=== PATIENT | female | born 1990 | race Two or more races ===

== ENCOUNTER → 2018-01-01 16:00 | Outpatient (CLI) | payer OTHER, SELFPAY ==
[2018-01-04 09:46] LABS: HPV Reflexed? NOT INDICATED
== END ==
PROVIDERS: Visit Provider Obstetrics & Gynecology
DX: Z12.4 Encounter for screening for malignant neoplasm of cervix (principal)
CPT/HCPCS: 88175; G0145

== ENCOUNTER → 2021-01-13 | Outpatient (CLI) | payer OTHER, SELFPAY ==
[2021-01-13 10:36] VITALS: BMI 26.0
[2021-01-15 12:29] LABS: HPV Reflexed? NOT INDICATED
== END | disposition home or self-care (01) ==
LOC: LABSPEC 12:28
PROVIDERS: Referring Provider Nurse Practitioner Women's Health; Visit Provider Nurse Practitioner Women's Health
DX: Z12.4 Encounter for screening for malignant neoplasm of cervix (principal)
CPT/HCPCS: 88175; G0145

== ENCOUNTER → 2021-05-27 11:29 | Outpatient (CLI) | payer OTHER, SELFPAY ==
--- NOTE | 2021-05-27 11:32 | US_ITS ---
STUDY: ULTRASOUND OF THE FEMALE PELVIS - COMPLETE REASON FOR EXAM: Female, 30 years old. Pelvic pain and irregular bleeding. LMP: 04/28/2021. TECHNIQUE: Transabdominal and Transvaginal TECHNICAL QUALITY: Adequate. COMPARISON: None. FINDINGS: The uterus is anteverted and is in a midline position. The uterus measures 7.5 cm x 3.7 cm x 2.6 cm. Normal uterine cervix. The endometrium measures 6 mm in thickness, and is heterogeneous (striated). There is no demonstrated endometrial mass. There is no demonstrated myometrial mass. I.U.D. - The patient does not have an I.U.D. The right ovary is visualized. The right ovary measures 2.4 cm x 1.6 cm x 2 cm. There is a 2.3 cm x 2.1 cm x 1.8 cm hypoechoic solid nodule adjacent to the right ovary. This may represent either a pedunculated uterine fibroid or possible ovarian nodule. Correlation with CT is recommended. There is normal arterial and normal venous vascularity. The left ovary is visualized. The left ovary measures 2.9 cm x 2.2 cm x 2 cm. There is no left ovarian cyst or ovarian mass. There is no visualized left adnexal mass or complex lesion. There is normal arterial and normal venous vascularity. There is minimal fluid in the cul-de-sac. The pre void volume of the bladder was 497 ml. US/Transvaginal Non- IMPRESSION: 2.3 cm x 2.1 cm x 1.8 some hypoechoic solid nodule adjacent to the right ovary. This may represent either a primary ovarian nodule versus a pedunculated fibroid. Correlation with a CT scan is recommended. Electronically Signed: Justo Sheikh MD at 14:13 EDT , Service support ,
--- NOTE | 2021-05-27 11:32 | US_ITS ---
STUDY: ULTRASOUND OF THE FEMALE PELVIS - COMPLETE REASON FOR EXAM: Female, 30 years old. Pelvic pain and irregular bleeding. LMP: 04/28/2021. TECHNIQUE: Transabdominal and Transvaginal TECHNICAL QUALITY: Adequate. COMPARISON: None. FINDINGS: The uterus is anteverted and is in a midline position. The uterus measures 7.5 cm x 3.7 cm x 2.6 cm. Normal uterine cervix. The endometrium measures 6 mm in thickness, and is heterogeneous (striated). There is no demonstrated endometrial mass. There is no demonstrated myometrial mass. I.U.D. - The patient does not have an I.U.D. The right ovary is visualized. The right ovary measures 2.4 cm x 1.6 cm x 2 cm. There is a 2.3 cm x 2.1 cm x 1.8 cm hypoechoic solid nodule adjacent to the right ovary. This may represent either a pedunculated uterine fibroid or possible ovarian nodule. Correlation with CT is recommended. There is normal arterial and normal venous vascularity. The left ovary is visualized. The left ovary measures 2.9 cm x 2.2 cm x 2 cm. There is no left ovarian cyst or ovarian mass. There is no visualized left adnexal mass or complex lesion. There is normal arterial and normal venous vascularity. There is minimal fluid in the cul-de-sac. The pre void volume of the bladder was 497 ml. US/Pelvic (Non ) IMPRESSION: 2.3 cm x 2.1 cm x 1.8 some hypoechoic solid nodule adjacent to the right ovary. This may represent either a primary ovarian nodule versus a pedunculated fibroid. Correlation with a CT scan is recommended. Electronically Signed: Justo Sheikh MD at 14:13 EDT , Service support ,
== END ==
PROVIDERS: Referring Provider Obstetrics & Gynecology; Visit Provider Obstetrics & Gynecology
DX: R10.2 Pelvic and perineal pain (principal)
CPT/HCPCS: 76830; 76856; 93976

== ENCOUNTER → 2021-06-29 11:03 | Outpatient (CLI) | payer OTHER, SELFPAY ==
--- NOTE | 2021-06-29 11:05 | MRI_ITS ---
MR Pelvis Female WO/W Contrast 06/29/2021 11:21 AM COMPARISON: Ultrasound 05/27/2021 CLINICAL HISTORY: pelvic pain, bleeding for 2.5 wks 04/2021; minimal pain, no bleeding now TECHNIQUE: Multiplanar T1 and T2 weighted and dynamic post-gadolinium images were obtained through the pelvis. FINDINGS: Bladder: Unremarkable Reproductive organs: 1.8 cm dominant follicle in the right ovary. Lymphadenopathy: Absent Ascites: Absent Bones: No suspicious lesions MRI/Pelvis W/WO Contrast IMPRESSION: Normal female pelvis. Previously described right adnexal mass is not appreciated on this examination. Recommend follow-up pelvic ultrasound in 6-12 weeks to reevaluate the right adnexa. Electronically Signed: Brett Naik MD at 19:58 EDT Tel , Service support ,
== END ==
PROVIDERS: Visit Provider Obstetrics & Gynecology
DX: R10.2 Pelvic and perineal pain (principal)
CPT/HCPCS: 72197; A9575

== ENCOUNTER 2021-10-25 14:28 | Outpatient (CLI) | payer OTHER, SELFPAY ==
[2021-10-25 14:40] LABS: Absolute Lymphocyte Count 2.28 X10^3/uL (0.83-4.51); Absolute Neutrophil Count 9.8 X10^3/uL (2.0-7.7); Basophil# 0.03 X10^3/uL; Basophil% 0.2 % (0-1); Eosinophil# 0.21 X10^3/uL; Eosinophils% 1.6 % (0-5); Hematocrit 37.7 % (37-47); Hemoglobin 12.7 g/dL (12.0-15.0); Lymphocyte # 2.28 X10^3/ul (0.83-4.51); Lymphocyte % 17.2 % (19-41); Mean Corp Hgb Conc 33.7 g/dL (32-36); Mean Corpuscular Hgb 28.4 pg (27.0-32.0); Mean Corpuscular Volume 84.3 fL (81-99); Mean Platelet Vol. 10.6 fl (6.2-12.0); Monocyte# 0.89 X10^3/uL; Monocyte% 6.7 % (0-10); NRBC Flagged by Analyzer 0 % (0-5); Neutrophil # 9.83 X10^3/uL (2.7-7.7); Platelet Count 322 K/mm3 (150-450); RBC Distribution Width CV 13.3 % (11.6-14.6); RBC Distribution Width SD 41.3 fl (35.1-43.9); Red Blood Count 4.47 M/mm3 (4.2-5.4); White Blood Count 13.3 K/mm3 (4.4-11.0)
[2021-10-25 15:36] LABS: Amphetamine Urine VISTA NEGATIVE (<1000 ng/mL); Barbiturate Urine VISTA NEGATIVE (< 200 ng/mL); Benzodiazepine Urine VISTA NEGATIVE (< 200 ng/mL); Cocaine Urine VISTA NEGATIVE (< 300 ng/mL); Ecstacy Urine VISTA NEGATIVE (< 500 ng/mL); Methadone Urine VISTA NEGATIVE (< 300 ng/mL); PCP Urine VISTA NEGATIVE (< 25 ng/mL); THC Urine VISTA NEGATIVE (< 50 ng/mL); Vista UDS pH Range 5
[2021-10-25 15:40] LABS: HIV - WCH Non-Reactive (Nonreactive); Hepatitis B Surface Antigen Non-Reactive (Nonreactive); Hepatitis C Antibody Non-Reactive (Nonreactive); Rubella IgG Reactive (Nonreactive); Syphilis Antibodies Non-reactive
[2021-10-27 22:07] LABS: Chlamydia By Nucleic Acid AMP Negative (Negative)
[2021-10-28 19:11] LABS: Gonococcus By Nucleic Acid AMP Negative (Negative)
== END 2021-10-25 23:59 | disposition home or self-care (01) ==
LOC: PAVLAB 14:29
PROVIDERS: Referring Provider Obstetrics & Gynecology; Visit Provider Obstetrics & Gynecology
DX: Z34.90 Encounter for supervision of normal pregnancy, unspecified, unspecified trimester (principal)
CPT/HCPCS: 36415; 80307; 85025; 86703; 86762; 86780; 86803; 86850; 86900; 86901; 87086; 87088; 87340; 87491; 87591

== ENCOUNTER 2021-12-28 22:18 | Emergency (ER) | payer OTHER, SELFPAY ==
[2021-12-28 22:19] VITALS: BP 125/73; PULSE 89; RESP 18; TEMP 36.3; O2SAT 98; BMI 25.6
--- NOTE | 2021-12-28 22:33 | US_ITS ---
INDICATION: right flank pain EXAMINATION: Ultrasound US Kidney(s) complete (eg, kidneys and bladder) TECHNIQUE: Elkins scale and color doppler images were obtained of the kidneys. COMPARISON: OB ultrasound on same day. MRI pelvis June 29, 2021. FINDINGS: RIGHT KIDNEY: 11.4 x 5.4 x 6.0 cm. Mild hydronephrosis. No shadowing calculus, focal lesion or perinephric collection is demonstrated. LEFT KIDNEY: 10.8 x 5.3 x 4.4 cm. Minimal hydronephrosis. No shadowing calculus, focal lesion or perinephric collection is demonstrated. URINARY BLADDER: Anechoic, mostly decompressed measuring 4.2 x 1.7 x 5.6 cm (21.5 mL) US/Kidney and Bladder IMPRESSION: Mild right and minimal left hydronephrosis. Electronically Signed: Servando Spear MD at 0:03 EDT ,
--- NOTE | 2021-12-28 22:33 | US_ITS ---
STUDY: SECOND AND THIRD TRIMESTER OBSTETRICAL ULTRASOUND - LIMITED REASON FOR EXAM: Female, 31 years old abd pain-rt LMP: August 21, 2021 correlating with 18 weeks 3 days gestation estimated delivery date May 28, 2022 PRIOR ULTRASOUND: May 27, 2021 TECHNIQUE: Transabdominal OB ultrasound grayscale, color flow, M-mode Doppler imaging. Spectral Doppler evaluation of the right ovary performed. FINDINGS: There is a single live intrauterine fetus. The fetus is in a current cephalic presentation. There is demonstrated cardiac activity with a heart rate of 162 bpm. There is subjectively normal amniotic fluid volume. The placenta is anterior without evidence of abruption or previa. There are Grade 0 placental changes. The cervix measures 3.2 cm in length and is closed. Filled stomach. Four-chamber heart. Echogenic cardiac focus noted, image 21. 2 upper and 2 lower extremities. BIOMETRY: Not performed. Right ovary 2.7 x 1.8 x 2.4 cm with normal parenchymal transit present Doppler vascular flow. Left ovary is obscured by bowel gas and surrounding soft tissues. No free fluid in the adnexa or cul-de-sac. US/OB Limited (No Biometrics) IMPRESSION: Single live intrauterine with normal heart rate. Nonspecific echogenic cardiac focus. Recommend follow-up dedicated ultrasound anatomy screening at 18-20 weeks gestation. Anterior placenta without evidence of abruption or previa. Normal right ovary. No evidence of current right ovarian torsion. Obscured left ovary Electronically Signed: Servando Spear MD at 23:58 EDT ,
--- NOTE | 2021-12-28 23:35 | EX.ED.DYSGE1 ---
HPI History of Present Illness Chief Complaint: Abd Pain Narrative Narrative: Patient is a female approximately 18 weeks . 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 She states there is no one motion that led to the pain and that the pain seems to be sharper and not changed with any type of position. She says she feels that the pain is radiating towards the right abdomen as well. She denies any vaginal bleeding or discharge but with the back/flank pain and she was concerned so she presents for evaluation. PFSH [facility] Home Medications prenat.vits,irma,[id number] 1 tab PO DAILY 10/07/21 [History Last Taken Unknown] amoxicillin 500 mg PO TID 7 Days #21 cap 12/29/21 [Rx Last Taken Unknown] Allergy/AdvReac Type Severity Reaction Status Date / Time No Known Allergies Allergy Unverified 12/28/21 22:21 Social History adopted: No household members: spouse number of children: 0 current occupational status: employed current occupation: dance instructer sexually active: Yes Smoking Status: Never smoker alcohol intake: current alcohol intake frequency: a few times a month details: not while substance use type: does not use what type of physical activity do you participate in: other seatbelt use: always do you feel safe at home: Yes 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 ROS ROS ED Constitutional Constitutional ED: Denies chills or fever(s) ENT ENT ED: Denies sore throat Cardiovascular Cardiovascular: Denies chest pain Respiratory/Chest Respiratory/Chest: Denies cough or dyspnea Gastrointestinal Gastrointestinal: Reports abdominal pain; Denies diarrhea, nausea or vomiting Genitourinary Genitourinary ED: Denies dysuria or hematuria Musculoskeletal Musculoskeletal: Reports back pain; Denies myalgias Integumentary Denies rash Neurologic Neurologic: Denies headache(s) or paresthesias Hematologic/Lymphatic Hematologic/Lymphatic: Denies easy bleeding or easy bruising EXAM Physical Exam Const Vital Signs: 12/28/21 22:19 12/29/21 00:40 Temperature 97.3 F L Temperature Source Temporal Pulse Rate 89 73 Respiratory Rate 18 16 Blood Pressure 125/73 H 102/72 Blood Pressure Mean 90 82 Pulse Ox 98 Oxygen Delivery Method Room Air Room Air Positive well nourished and well developed General Appearance ED: well developed Eyes PERRL and EOMs intact bilaterally General Eye ED: Negative for scleral icterus Neck supple Resp normal respiratory effort and clear to auscultation bilaterally Cardio regular rate and regular rhythm GI non-distended GI Narrative: Abdomen is gravid with fundus consistent with reported gestational age. There is mild pain on palpation in the right upper quadrant without voluntary guarding or rigidity. Negative Hilario sign. Negative heel strike psoas and obturator signs Auscultation: normoactive bowel sounds Palpation: soft Back/Spine Back/Spine Narrative: Positive right CVA pain Extremity normal to inspection Neuro oriented x3 and CN's II-XII intact bilaterally Sensorium / Orientation: alert Motor Exam: strength 5/5 throughout Psych mental status grossly normal Skin no rashes or lesions noted Skin Narrative: No overlying soft tissue changes to suggest trauma or infection General Skin Exam: Negative for jaundice MDM MDM MDM Narrative Medical decision making narrative: Patient arrived to the ER afebrile with a blood pressure that was not concerning for preeclampsia. She denied any vaginal bleeding or discharge and therefore I had low concern for labor. With pain mainly in the right flank there is concern she has developed a kidney stone or even possible gallbladder dysfunction as she does have some mild pain with palpation in the right upper quadrant. Basic labs were obtained which do show a leukocytosis approximately 3 points above her previous value however leukocytosis can be normal in . Her kidney function is normal going against acute kidney injury and she has no severe electrolyte derangement and no elevation to her lipase or liver enzymes indicate gallbladder disease. Urine does show +1 bacteria without contamination or blood. Ultrasound of the kidneys as well as the uterus shows mild hydronephrosis on the right without obvious stone. As she does have mainly pain on the right I feel it is most likely related to the mild hydronephrosis and this will be secondary to the uterus distention causing some impingement to the ureter. The ultrasound of the uterus shows normal flow to the right ovary as well as normal heartbeat for the fetus. Therefore at this time as she is afebrile with normal blood pressure I do not feel there is need for placement in the hospital and I do not believe there is need to talk about CT scan or MRI to further evaluate her abdomen as her labs and exam do not point to pancreas gallbladder or appendix disease. The patient will be started on amoxicillin secondary to the bacteria in the urine and because she also has ketones present will be given 1 L fluid. 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 Patient is agreeable to the plan. Lab Data Attestation: I reviewed the patient's lab results. Labs: Laboratory Results - last 24 hr 12/29/21 12/29/21 12/29/21 00:00 00:00 00:05 WBC 16.6 H RBC 3.92 L Hgb 11.0 L Hct 33.1 L MCV 84.4 MCH 28.1 MCHC 33.2 RDW Std Deviation 37.4 RDW Coeff of Sebastian 12.4 Plt Count 270 MPV 10.7 Immature Gran % (Auto) 0.400 Neut % (Auto) 75.8 H Lymph % (Auto) 15.8 L [place] % (Auto) 6.7 Eos % (Auto) 1.1 Baso % (Auto) 0.2 Absolute Neuts (auto) 12.6 H Absolute Lymphs (auto) 2.63 Nucleated RBC % 0 Sodium 139 Potassium 3.3 L Chloride 109 H Carbon Dioxide 21.0 Anion Gap 9 BUN 4 L Creatinine 0.46 L Estim Creat Clear Calc 141.44 Est GFR (MDRD) Af Amer 205 Est GFR (MDRD) Non-Af 169 BUN/Creatinine Ratio 8.7 L Glucose 88 Calcium 8.5 Total Bilirubin 0.20 Direct Bilirubin 0.08 AST 9 L ALT 10 L Alkaline Phosphatase 71 Total Protein 6.5 Albumin 2.7 L Globulin 3.8 Lipase 181 Urine Color Yellow Urine Clarity Clear Urine pH 6.0 Ur Specific [facility] [facility] 1.010 Urine Protein Negative Urine Glucose (UA) Normal Urine Ketones 50 H Urine Occult Blood Negative Urine Nitrite Negative Urine Bilirubin Negative Urine Urobilinogen Normal Ur Leukocyte Esterase Negative Urine RBC 0 SEEN Urine WBC 0 SEEN Ur Squamous Epith Cells 0 SEEN Urine Bacteria 1+ Urine Mucus 0 SEEN Radiography Diagnostic Testing: Clinical Impression(s) from Imaging Studies Obstetrics Ultrasound 12/28/21 22:33 IMPRESSION: Single live intrauterine with normal heart rate. Nonspecific echogenic cardiac focus. Recommend follow-up dedicated ultrasound anatomy screening at 18-20 weeks gestation. Anterior placenta without evidence of abruption or previa. Normal right ovary. No evidence of current right ovarian torsion. Obscured left ovary Electronically Signed: Servando Spear MD at 23:58 EDT , ADDENDUM: 12/29/21 0010 IMPRESSION: Single live intrauterine with normal heart rate. Nonspecific echogenic cardiac focus. Recommend follow-up dedicated ultrasound anatomy screening at 18-20 weeks gestation. Anterior placenta without evidence of abruption or previa. Normal right ovary. No evidence of current right ovarian torsion. Obscured left ovary N.B. : AUBREY Garces, confirmed on 12/29/2021 00:03:50 (ET) that the healthcare facility has received the radiology report. Electronically Signed: Servando Spear MD at 23:58 EDT , Renal Ultrasound 12/28/21 22:33 IMPRESSION: Mild right and minimal left hydronephrosis. Electronically Signed: Servando Spear MD at 0:03 EDT , Discharge Plan Triage Chief Complaint: Abd Pain ED Provider: Jerrod Long Dx/Rx/DC Orders Clinical Impression: Acute right flank pain, , Hydronephrosis Instructions: Adapting to Second ..., Understanding Hydronephrosis Prescriptions: New amoxicillin 500 mg capsule 500 mg PO TID 7 Days Qty: 21 RF: 0 No Action prenat.vits,irma,[id number] Tablet 1 tab PO DAILY RF: 0 Primary Care Provider: Care Physician,No Primary Referrals: Monalisa Langley MD [STAFF PHYSICIAN] - 3-5 Days if not improving Care Physician,No Primary [Primary Care Provider] - Disposition Disposition: Home, Self Care
[2021-12-29 00:05] LABS: Absolute Lymphocyte Count 2.63 X10^3/uL (0.83-4.51); Absolute Neutrophil Count 12.6 X10^3/uL (2.0-7.7); Basophil# 0.04 X10^3/uL; Basophil% 0.2 % (0-1); Eosinophil# 0.18 X10^3/uL; Eosinophils% 1.1 % (0-5); Hematocrit 33.1 % (37-47); Lymphocyte # 2.63 X10^3/ul (0.83-4.51); Lymphocyte % 15.8 % (19-41); Mean Corp Hgb Conc 33.2 g/dL (32-36); Mean Corpuscular Hgb 28.1 pg (27.0-32.0); Mean Corpuscular Volume 84.4 fL (81-99); Mean Platelet Vol. 10.7 fl (6.2-12.0); Monocyte# 1.12 X10^3/uL; Monocyte% 6.7 % (0-10); NRBC Flagged by Analyzer 0 % (0-5); Neutrophil # 12.56 X10^3/uL (2.7-7.7); Neutrophil % 75.8 % (47-70); Platelet Count 270 K/mm3 (150-450); RBC Distribution Width CV 12.4 % (11.6-14.6); RBC Distribution Width SD 37.4 fl (35.1-43.9); Red Blood Count 3.92 M/mm3 (4.2-5.4); White Blood Count 16.6 K/mm3 (4.4-11.0)
[2021-12-29 00:06] LABS: Mucous, Urine 0 SEEN /hpf (<or=2+); Red Blood Cells-Urine 0 SEEN /hpf (0-5); Squamous Epithelial Cells - UA 0 SEEN /hpf (5-10); White Blood Cells 0 SEEN /hpf (0-5)
[2021-12-29 00:07] LABS: Color, Urine Yellow (Yellow); Glucose, Dipstick Normal (Normal); Ketone-Dipstick 50 mg/dl (Negative); Leukocyte Esterase-Dipstick Negative /ul (Negative); Nitrite-Dipstick Negative (Negative); Occult Blood-Urine Negative /ul (Negative); Protein-Dipstick Negative (Negative); Urine Bilirubin Dipstick Negative (Negative); Urine Clarity Clear (Clear); Urine Urobilinogen Normal (Normal)
[2021-12-29 00:20] LABS: Bacteria 1+ /hpf (None Seen)
[2021-12-29 00:22] LABS: AST(SGOT) 9 U/L (15-37); Alanine Aminotransfer ALT/SGPT 10 U/L (13-56); Albumin, Serum 2.7 g/dL (3.2-5.0); Alkaline Phosphatase 71 U/L (45-117); Anion Gap 9 (5-15); BUN 4 mg/dL (7-18); BUN/Creat Ratio 8.7 RATIO (10-20); Bilirubin, Direct 0.08 mg/dL (0.00-0.30); Calcium,Total 8.5 mg/dL (8.5-10.1); Chloride 109 mmol/L (98-107); Creatinine, Serum 0.46 mg/dL (0.55-1.02); EST Glomerular Filtration Rate 169 mL/min (>60); Est Glom Filt Rate - Afr Amer 205 mL/min (>60); Estimated Creatinine Clearance 141.44 ml/min; Globulin 3.8 g/dL (2.2-4.2); Glucose 88 mg/dL (74-106); Lipase 181 U/L (73-393); Potassium 3.3 mmol/L (3.5-5.1); Protein, Total 6.5 g/dL (6.4-8.2); Sodium Level 139 mmol/L (136-145)
[2021-12-29] MEDS: 0.9% Normal Saline 1,000 ML 999 ML IV (00:22)
[2021-12-29] MEDS: AMOXICILLIN 500 MG CAPSULE PO (00:39)
[2021-12-29 00:40] VITALS: BP 102/72; PULSE 73; RESP 16
[2021-12-29 02:26] VITALS: BP 98/55; PULSE 90; RESP 18; O2SAT 97
== END 2021-12-29 02:29 | disposition home or self-care (01) ==
PROVIDERS: Emergency Provider Emergency Medicine; Visit Provider Emergency Medicine
DX: O26.832 Pregnancy related renal disease, second trimester (principal); N13.30 Unspecified hydronephrosis; O26.892 Other specified pregnancy related conditions, second trimester; M54.9 Dorsalgia, unspecified; R10.11 Right upper quadrant pain; Z3A.18 18 weeks gestation of pregnancy
CPT/HCPCS: 76770; 76815; 80048; 80076; 81001; 83690; 85025; 87086; 87088; 96360; 96361; 99284; J7030

== ENCOUNTER → 2022-02-16 | Outpatient (CLI) | payer OTHER, SELFPAY ==
[2022-02-16 15:17] LABS: Absolute Lymphocyte Count 2.16 X10^3/uL (0.83-4.51); Absolute Neutrophil Count 11.4 X10^3/uL (2.0-7.7); Basophil# 0.04 X10^3/uL; Basophil% 0.3 % (0-1); Eosinophil# 0.26 X10^3/uL; Eosinophils% 1.7 % (0-5); Hematocrit 31.1 % (37-47); Hemoglobin 10.2 g/dL (12.0-15.0); Lymphocyte # 2.16 X10^3/ul (0.83-4.51); Mean Corp Hgb Conc 32.8 g/dL (32-36); Mean Corpuscular Hgb 28.3 pg (27.0-32.0); Mean Corpuscular Volume 86.1 fL (81-99); Mean Platelet Vol. 10.8 fl (6.2-12.0); Monocyte# 1.35 X10^3/uL; Monocyte% 8.8 % (0-10); NRBC Flagged by Analyzer 0 % (0-5); Neutrophil # 11.44 X10^3/uL (2.7-7.7); Neutrophil % 74.1 % (47-70); Platelet Count 290 K/mm3 (150-450); RBC Distribution Width CV 12.4 % (11.6-14.6); RBC Distribution Width SD 39.3 fl (35.1-43.9); Red Blood Count 3.61 M/mm3 (4.2-5.4); White Blood Count 15.4 K/mm3 (4.4-11.0)
[2022-02-16 15:24] LABS: Glucose Challenge Gest 1H 50g 83 mg/dL (70-140)
== END | disposition home or self-care (01) ==
LOC: PAVLAB 14:56
PROVIDERS: Referring Provider Obstetrics & Gynecology; Visit Provider Obstetrics & Gynecology
DX: Z34.00 Encounter for supervision of normal first pregnancy, unspecified trimester (principal)
CPT/HCPCS: 36415; 82950; 85025

== ENCOUNTER → 2022-05-04 | Outpatient (CLI) | payer OTHER, SELFPAY | END | disposition home or self-care (01) | LOC: LABSPEC 16:54 | PROVIDERS: Referring Provider Obstetrics & Gynecology; Visit Provider Obstetrics & Gynecology | DX: Z34.00 Encounter for supervision of normal first pregnancy, unspecified trimester (principal) | CPT/HCPCS: 87081 ==

== ENCOUNTER 2022-05-29 22:30 | Inpatient (IN) | payer OTHER, SELFPAY ==
[2022-05-29 20:18] VITALS: BP 120/78; PULSE 89
[2022-05-29 20:20] VITALS: TEMP 36.6
[2022-05-29 20:33] VITALS: BMI 29.2
[2022-05-29] MEDS: LACTATED RINGERS 500 ML 999 ML IV (22:45)
[2022-05-29] MEDS: Lactated Ringers 1,000 ML 200 ML IV (22:45)
[2022-05-29 22:58] LABS: Absolute Neutrophil Count 9.3 X10^3/uL (2.0-7.7); Basophil# 0.03 X10^3/uL; Basophil% 0.2 % (0-1); Eosinophil# 0.15 X10^3/uL; Eosinophils% 1.2 % (0-5); Hematocrit 33.4 % (37-47); Hemoglobin 10.9 g/dL (12.0-15.0); Lymphocyte % 16.9 % (19-41); Mean Corp Hgb Conc 32.6 g/dL (32-36); Mean Corpuscular Hgb 27.6 pg (27.0-32.0); Mean Corpuscular Volume 84.6 fL (81-99); Mean Platelet Vol. 12.8 fl (6.2-12.0); Monocyte# 1.32 X10^3/uL; Monocyte% 10.1 % (0-10); NRBC Flagged by Analyzer 0 % (0-5); Neutrophil # 9.28 X10^3/uL (2.7-7.7); Neutrophil % 71.1 % (47-70); Platelet Count 213 K/mm3 (150-450); RBC Distribution Width CV 13.7 % (11.6-14.6); RBC Distribution Width SD 42.3 fl (35.1-43.9); Red Blood Count 3.95 M/mm3 (4.2-5.4)
[2022-05-29 23:34] VITALS: TEMP 36.8
[2022-05-29 23:35] VITALS: BP 100/56; PULSE 75
[2022-05-30] VITALS (69 sets, daily range): BP systolic 92–133; BP diastolic 43–85; PULSE 68–100; RESP 14–18; TEMP 36.4–38.4; O2SAT 94–100
[2022-05-30] MEDS: LACTATED RINGERS 500 ML 999 ML IV ×2 (00:15→12:19)
[2022-05-30] MEDS: fentaNYL-bupivacaine (epidural) 100 ML BAG EPIDURAL ×4 (01:19→14:48)
--- NOTE | 2022-05-30 01:47 | HP.PCM.OB_ITS ---
HPI - General General Date of Admission: 05/29/22 HPI Narrative ROSALINO JONES, is a 31 F who presents IAL regualr ctx no vb lof good fm ctx increasing in intensity Maternal Data Information DEBBIE Calculator Estimated Delivery Date Method Current WG Current Estimate 05/28/22 LMP (Certain) 40w 2d PFSH PFSH Medical History no medical history Home Medications prenat.vits,irma,[id number] 1 tab PO DAILY 10/07/21 [History Last Taken 05/29/22 07:00 1 tab] breast pump #1 ea 03/16/22 [Rx Last Taken Unknown] Allergy/AdvReac Type Severity Reaction Status Date / Time No Known Allergies Allergy Verified 05/29/22 20:35 Family History no significant family his Surgical History no surgical history Social History adopted: No household members: spouse number of children: 0 current occupational status: employed current occupation: dance instructer sexually active: Yes Smoking Status: Never smoker alcohol intake: current alcohol intake frequency: a few times a month details: not while substance use type: does not use what type of physical activity do you participate in: other seatbelt use: always do you feel safe at home: Yes additional social history: 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 History 1 Elective abortions Hx Para 0 Spontaneous abortions Hx # Term Pregnancies Ectopic pregnancies Hx # Pregnancies Multiple births # of living children Visit Details Expected Delivery Route/Plan Labor Preferences- CB/BF classes: yes labor support person: Saul labor intervention preferences: [] pain management options preferred: open to epidural if needed cut cord/dad catch: no : yes PP control planned: discussed discussed possible routes of delivery and associated risks: [] special requests: [] Plans Covid status: discussed vaccination Flu vaccine: discussed Tdap vaccine: declined Rhogam: na LARC form signed: yes movement and labor precautions reviewed. Problem list reviewed and updated with the most current plan of care details and appropriate orders placed. Relevant counseling for the gestational age provided. Continue routine care and follow up unless otherwise noted in visit notes/problem list details OB Flowsheet Initial Weight: 141 lb Date -?--?-?-?-?-?-?-?-?-?-?-?- EGA Weight BP Urine Prot -?-?-?-?-?-?-?-?-?-?-?-?- Glucose FHR FuHt Pres Dilation -?-?-?-?-?-?-?-?-?-?-?-?- Effaced St Visit Note 10/25/21 -?-?-?-?-?-?-?-?-?-?-?-?- 9w 2d 141 lb (+0 oz) 122/80 -?-?-?-?-?-?-?-?-?-?-?-?- 180 -?-?-?-?-?-?-?-?-?-?-?-?- SM- CRL 2.2cm co ns with LMP 11/22/21 -?-?-?-?-?-?-?-?-?-?-?-?- 13w 2d 140 lb (-16 oz) 110/72 Negative -?-?-?-?-?-?-?-?-?-?-?-?- Negative 145 -?-?-?-?-?-?-?-?-?-?-?-?- SM- no vb crampi ng reviewed labs 12/20/21 -?-?-?-?-?-?-?-?-?-?-?-?- 17w 2d 140 lb (-16 oz) 100/70 -?-?-?-?-?-?-?-?-?-?-?-?- 150 18 -?-?-?-?-?-?-?-?--?-?-?-?- SM- no vb some c ramping 01/19/22 -?-?-?-?-?-?-?-?-?-?-?-?- 21w 4d 142 lb 4 oz (+1 lb 4 oz) 100/70 Negative -?-?--?-?-?-?-?-?-?-?-?-?- Negative 144 -?-?-?-?-?-?-?-?-?-?-?-?- JV- no lof, vagi nal bleeding, or cramping. anatomy ultrasound was normal. 02/16/22 -?-?-?-?-?-?-?-?-?-?-?-?- 25w 4d 146 lb 4 oz (+5 lb 4 oz) 120/76 Negative -?-?-?-?-?-?-?-?-?-?-?-?- Negative 143 -?-?-?-?-?-?-?-?-?-?-?-?- -NO VB, LOF. G ood FM. Larc, 28 wk labs 03/16/22 -?-?-?-?-?-?-?-?-?-?-?-?- 29w 4d 152 lb (+11 lb) 132/80 Negative -?-?-?-?-?-?-?-?-?-?-?-?- Negative 128 29 -?-?-?-?-?-?-?-?-?-?-?-?- JV- pt wants tda p next visit. no complaints. 04/04/22 -?-?-?-?-?-?-?-?-?-?-?-?- 32w 2d 155 lb 6 oz (+14 lb 6 oz) 107/73 Negative -?-?-?-?-?-?-?-?-?-?-?-?- Negative 145 32 Cephalic -?-?-?-?-?-?-?-?-?-?-?-?- Sm- no vb lof go od fm no regular ctx declined tdap 04/21/22 -?-?-?-?-?-?-?-?-?-?-?-?- 34w 5d 157 lb 8 oz (+16 lb 8 oz) 118/72 Negative -?-?-?-?-?-?-?-?-?-?-?-?- Negative 145 35 -?-?-?-?-?-?-?-?-?-?-?-?- JV- no lof, vagi nal bleeding, or dec fm. 05/04/22 -?-?-?-?-?-?-?-?-?-?-?-?- 36w 4d 159 lb 2 oz (+18 lb 2 oz) 122/80 Negative -?-?-?-?-?-?-?-?-?-?-?-?- Negative 160 36 Cephalic -?-?-?-?-?-?-?-?-?-?-?-?- JV- no lof, vagi nal bleeding ,or dec fm. gbs collected. 05/09/22 -?-?-?-?-?-?-?-?-?-?-?-?- 37w 2d 161 lb (+20 lb) 96/70 -?-?-?-?-?-?-?-?-?-?-?-?- 150 37 Cephalic -?-?-?-?-?-?-?-?-?-?-?-?- SM- no vb lof go od fm no regular ctx 05/16/22 -?-?-?-?-?-?-?-?-?-?-?-?- 38w 2d 162 lb 8 oz (+21 lb 8 oz) 129/84 Negative -?-?-?-?-?-?-?-?-?-?-?-?- Negative 150 38 Cephalic 0 .5 -?-?-?-?-?-?-?-?-?-?-?-?- Sm- no vb lof go od fm n oregular ctx 05/25/22 -?-?-?-?-?-?-?-?-?-?-?-?- 39w 4d 162 lb 2 oz (+21 lb 2 oz) 109/71 Negative -?-?-?-?-?-?--?-?-?-?-?-?- Negative 140 39 Cephalic 2 -?-?-?-?-?-?-?-?-?-?-?-?- 70 -2 JV- no lof , vaginal bleeding, or dec fm. no complaints. today. labor precautions discussed. 05/29/22 -?-?-?-?-?-?-?-?-?-?-?-?- 40w 1d 159 lb 9.835 oz (+18 lb 9.835 oz) 120/78 100/56 113/77 116/66 117/68 119/60 97/52 100/58 113/73 101/57 100/55 99/57 -?-?-?-?-?-?-?-?-?-?-?-?- -?-?-?-?-?-?-?-?-?-?-?-?- NST FHR Rate Baby A Baseline: 140 Variability:: Moderate Accelerations:: 15 x 15 Decelerations:: None NST Reactive:: Yes FHR Category:: Category I Uterine Activity:: q3-5 ROS Constitutional Constitutional: Reports systems reviewed and no addt'l complaints, except as documented ENT HEENT: Reports systems reviewed and no addt'l complaints, except as documented Cardiovascular Cardiovascular: Reports systems reviewed and no addt'l complaints, except as documented Respiratory/Chest Respiratory/Chest: Reports systems reviewed and no addt'l complaints, except as documented Gastrointestinal Gastrointestinal: Reports systems reviewed and no addt'l complaints, except as documented and nausea; Denies abdominal pain Genitourinary Genitourinary: Reports systems reviewed and no addt'l complaints, except as documented, contractions Details: present and frequency (regular ) and movement Details: present Musculoskeletal Musculoskeletal: Reports systems reviewed and no addt'l complaints, except as documented Integumentary Integumentary: Reports as per HPI Neurologic Neurologic: Reports systems reviewed and no addt'l complaints, except as documented Endocrine Endocrinology: Reports systems reviewed and no addt'l complaints, except as documented Vital Signs Vital Signs Vital Signs: 05/29/22 20:18 05/29/22 20:18 05/29/22 20:20 Temperature Temperature Source Temporal Pulse Rate 89 Blood Pressure 120/78 BP Systolic 120 BP Diastolic 78 Pulse Ox 05/29/22 20:20 05/29/22 23:35 05/29/22 23:35 Temperature 97.8 F Temperature Source Pulse Rate 75 Blood Pressure 100/56 L BP Systolic 100 BP Diastolic 56 Pulse Ox 05/29/22 23:34 05/29/22 23:34 05/30/22 00:38 Temperature 98.2 F Temperature Source Temporal Pulse Rate 83 Blood Pressure BP Systolic BP Diastolic Pulse Ox 05/30/22 00:38 05/30/22 00:43 05/30/22 00:43 Temperature Temperature Source Pulse Rate 84 Blood Pressure 113/77 BP Systolic 113 BP Diastolic 77 Pulse Ox 98 05/30/22 00:43 05/30/22 00:48 05/30/22 00:48 Temperature Temperature Source Pulse Rate 89 Blood Pressure BP Systolic BP Diastolic Pulse Ox 97 98 05/30/22 00:53 05/30/22 00:53 05/30/22 00:58 Temperature Temperature Source Pulse Rate 92 88 Blood Pressure BP Systolic BP Diastolic Pulse Ox 97 05/30/22 00:58 05/30/22 01:00 05/30/22 01:00 Temperature Temperature Source Pulse Rate 88 Blood Pressure 116/66 BP Systolic 116 BP Diastolic 66 Pulse Ox 96 05/30/22 01:03 05/30/22 01:03 05/30/22 01:08 Temperature Temperature Source Pulse Rate 92 83 Blood Pressure BP Systolic BP Diastolic Pulse Ox 97 05/30/22 01:08 05/30/22 01:10 05/30/22 01:10 Temperature Temperature Source Pulse Rate 83 Blood Pressure 117/68 BP Systolic 117 BP Diastolic 68 Pulse Ox 97 05/30/22 01:10 05/30/22 01:13 05/30/22 01:13 Temperature Temperature Source Pulse Rate 91 Blood Pressure BP Systolic BP Diastolic Pulse Ox 94 96 05/30/22 01:15 05/30/22 01:15 05/30/22 01:18 Temperature Temperature Source Pulse Rate 100 90 Blood Pressure 119/60 BP Systolic 119 BP Diastolic 60 Pulse Ox 05/30/22 01:18 05/30/22 01:20 05/30/22 01:20 Temperature Temperature Source Pulse Rate 83 Blood Pressure 97/52 L BP Systolic 97 BP Diastolic 52 Pulse Ox 97 05/30/22 01:23 05/30/22 01:23 05/30/22 01:25 Temperature Temperature Source Pulse Rate 86 Blood Pressure 100/58 L BP Systolic 100 BP Diastolic 58 Pulse Ox 97 05/30/22 01:25 05/30/22 01:28 05/30/22 01:28 Temperature Temperature Source Pulse Rate 82 84 Blood Pressure BP Systolic BP Diastolic Pulse Ox 97 05/30/22 01:31 05/30/22 01:31 05/30/22 01:33 Temperature Temperature Source Pulse Rate 86 83 Blood Pressure 113/73 BP Systolic 113 BP Diastolic 73 Pulse Ox 05/30/22 01:33 05/30/22 01:35 05/30/22 01:35 Temperature Temperature Source Pulse Rate 79 Blood Pressure 101/57 L BP Systolic 101 BP Diastolic 57 Pulse Ox 97 05/30/22 01:38 05/30/22 01:38 05/30/22 01:40 Temperature Temperature Source Pulse Rate 82 Blood Pressure 100/55 L BP Systolic 100 BP Diastolic 55 Pulse Ox 97 05/30/22 01:40 05/30/22 01:43 05/30/22 01:43 Temperature Temperature Source Pulse Rate 80 78 Blood Pressure BP Systolic BP Diastolic Pulse Ox 97 05/30/22 01:45 05/30/22 01:45 Temperature Temperature Source Pulse Rate 82 Blood Pressure 99/57 L BP Systolic 99 BP Diastolic 57 Pulse Ox Weight Weight: 159 lb 9.835 oz Body Mass Index (BMI) 29.2 Physical Exam Const alert, oriented x3 and healthy appearing Constitutional Narrative: uncomfortable with contractions HEENT normocephalic and moist oral mucous membranes Head and Scalp: atraumatic Neck full ROM, no lymphadenopathy, supple and thyroid normal General: trachea midline Thyroid: thyroid normal Lymph Lymphatic: no lymphadenopathy noted Chest inspection of chest normal Resp normal respiratory effort Cardio regular rate GI normal to inspection, nondistended, normoactive bowel sounds, soft to palpation and non-tender Inspection: gravid external exam normal Bimanual Exam - Vag & Uterus: uterus non-tender Manual OB Exam: estimated gestational size appropriate, presentation cephalic, dilated, effaced and station Extremity normal to inspection General Extremity: Negative for edema Skin no rashes or lesions noted Neuro deep tendon reflexes 2+ bilaterally Motor Exam: strength 5/5 throughout and clonus absent Psych mental status grossly normal Labs Labs Labs: Blood Type O POSITIVE Antibody Screen NEGATIVE Hct 33.4 % (37-47) L Hgb 10.9 g/dL (12.0-15.0) L Pap Smear Negative Obstetrics US Syphilis Total Ab Non-reactive Rubella IgG Antibody Reactive (Nonreactive) Hep Bs Antigen Non-Reactive (Nonreactive) Chlamydia DNA (JOSE) Negative (Negative) Neisseria gonorrhoeae DNA (JOSE) Negative (Negative) HIV 1&2 Antibody Non-Reactive (Nonreactive) Glucose 1 Hr 50 gm 83 mg/dL (70-140) Assessment & Plan (1) Anemia affecting in second trimester: COMMENT: add FE (2) : QUALIFIERS: Weeks of gestation: 39 weeks Qualified Code(s): Z3A.39 - 39 weeks gestation of COMMENT: GBS neg. declined genetic and carrier screen (3) Supervision of normal first : COMMENT: PRR DEBBIE:05/28/22 Spouse: Saul having a Girl! (4) Active labor at term: PLAN: Plan Patient presents IAL, plan expectant management for , pitocin/AROM PRN if needed. Pain management: plans epidural. GBS neg. Management of any complications: none I have reviewed the [facility] and made any clinically relevant updates.
[2022-05-30] MEDS: Lactated Ringers 1,000 ML 200 ML IV ×3 (05:10→18:09)
[2022-05-30] MEDS: Oxytocin 30 units/NS 500 ml 30 UNITS/500 ML IV.SOLN IV (06:42)
[2022-05-30] MEDS: Acetaminophen 500 MG Tablet PO (14:39)
[2022-05-30] MEDS: Lidocaine 1% (30 ml sdv) 30 ML Vial INFILT (19:00)
[2022-05-30] MEDS: Sodium Citrate/Citric Acid 30 ML UDC PO (20:01)
--- NOTE | 2022-05-30 20:09 | EX.PCM.OBRPT ---
Assessment & Plan (1) Active labor at term: (2) Anemia affecting in second trimester: COMMENT: add FE (3) : QUALIFIERS: Weeks of gestation: 39 weeks Qualified Code(s): Z3A.39 - 39 weeks gestation of COMMENT: GBS neg. declined genetic and carrier screen (4) Supervision of normal first : COMMENT: PRR DEBBIE:05/28/22 Spouse: Saul having a Girl! (5) Failed vacuum extraction delivery: (6) delivery delivered: COMMENT: IAL failed vacuum LTCS SM 40 girl Shaye (7) Maternal fever during labor: COMMENT: amp gent(24 hour dose) given during labor, ancef and azithro at time of cs, ancef 24 hrs Maternal Data Information DEBBIE Calculator Estimated Delivery Date Method Current WG Current Estimate 05/28/22 LMP (Certain) 40w 2d Final DEBBIE Source: LMP Gestational age: 39 Details Operative Information Post-Operative Diagnosis: same Procedure Type: low transverse Type of Anesthesia: Epidural Special Medications: none Drain: Bailey to straight drain Fluids Replaced: crystalloid Findings Description of Procedure: Patient presented in active labor with clear rupture of membranes. Patient experienced arrest of dilation and therefore Pitocin augmentation was made. patient developed a fever and therefore ampicillin and gentamicin was given. Patient proceeded to complete dilation and had discomfort that was severe in her lower back radiating to the front. Patient pushed for 2 hours and a pudenal block was placed to try and aid with anesthesia. Vagina was Betadine prepped and ischial spines were located bilaterally and 2 cm medial and posterior to the ischial spines were injected with 10 cc of lidocaine bilaterally without complication. The patient continued to have severe lower back pain radiating upfront. After pushing for 2 hours the head had progressed to a +3 station. Was noted to be ROP with an asynclitic presentation but due to the progress with pushing it was felt reasonable to offer the patient an operative vaginal delivery due to maternal discomfort and the patient have been requesting it due to maternal discomfort. Vacuum was applied and pressure applied into the green zone pressure applied for a duration of 2 contractions and a total of 3 minutes. 2 pulls with 1 pop-off were made and no descent was noted therefore the decision to abort the vacuum delivery and proceed with primary was made due to suspected cephalopelvic disproportion. pillow was placed vaginally to elevate the head out of the pelvis to aid in delivery and reduce trauma to mom and baby. Epidural anesthesia was dosed up by found to be inadequate therefore the decision was made to place the patient under general anesthesia. The patient was placed in the dorsal supine position with leftward tilt. Patient was prepped and draped in the normal sterile fashion. Pfannenstiel skin incision was made with the scalpel and carried through to the underlying layer of fascia with the scalpel. Fascia was nicked in the midline and the incision extended laterally. The rectus bellies were dissected off superiorly and inferiorly with out complication both sharply and bluntly. The peritoneum was entered digitally. The incision was stretched and a low transverse uterine incision was made with the scalpel. The 's head was delivered atraumatically with minimal effort due to the aid of the pillow, followed by the anterior and posterior shoulders without complication the rest of the delivered. The cord was clamped and cut immediately and the was handed off to awaiting nurse. The placenta was delivered spontaneously immediately following and was noted to be intact and have a three-vessel cord. The uterus was exteriorized cleared of all clots and debris, and the incision was closed in a double layer closure using #1 Monocryl. The ovaries and fallopian tubes were noted to be within normal limits. The uterus was returned to the maternal abdomen and gutters were cleared of all clots and debris. Curtis applied to the incision. The peritoneum was closed with 3-0 Monocryl in a running fashion. Gloves were changed prior to fascial closure. Fascia was closed with 0 PDS in a running fashion. Subcutaneous tissue was copiously irrigated and the skin was closed with 3-0 Monocryl in a subcuticular fashion. Mepilex dressing was applied without complication. Patient was taken to recovery in stable condition. It was discussed with the patient that based on the clinical information obtained during this encounter, combined with her history, at this time I would recommend sections for future deliveries if further pregnancies are desired. Amniotic Membrane Rupture Type: Spontaneous Amniotic Fluid Description: Clear Placental Delivery Description: Spontaneous Placenta Disposition: [facility] Cord Vessel Description: 3 Vessels Cord Entanglement: None Delayed Cord Clamping: Yes Complications Risks of Surgery Discussed w/Patient: Bleeding, Infection, Need for Future C-Sections and Injury to surrounding structure(s) including bowel and bladder Complications: failed vacuum delivery, subgaleal hemorrhage Admit VTE Documentation VTE Present on Admission: No VTE Mechan Device Prophylaxis: SCD's Procedures Urinary/Genital [id number]: [id number] [facility]
--- NOTE | 2022-05-30 20:10 | PCM.PN.BLA ---
Progress Note vacuum applied +3 station due to maternal request and discomfort after pushing for 2 hours, asynclitic. 2 pulls with 1 pop off no descent decision to abort and proceed with primary due to suspected CPD. patient agreed.
[2022-05-30] MEDS: Cefazolin 2 GM in 0.9% Normal Saline 100 ML IV (20:33)
--- NOTE | 2022-05-30 21:22 | DCINST_ITS ---
Discharge Instructions Follow Up Care Test Results: Test results from this visit will be discussed in further detail at your follow- up appointment, if applicable. Discharge Plan Admission Admit Date/Time: 05/29/22 22:30 Attending Provider: Monalisa Langley Primary Care Provider: Jennifer Hurd Primary Discharge Orders/Prescriptions Prescriptions: New oxycodone-acetaminophen [Percocet] 5-325 mg tablet 1 tab PO Q6H PRN (Reason: pain) 7 Days Qty: 20 0RF naproxen [naproxen] 500 mg tablet 500 mg PO BID PRN PRN (Reason: Pain) Qty: 30 1RF Continued prenat.vits,irma,[id number] Tablet 1 tab PO DAILY (DME) breast pump Device See Rx Instructions .ROUTE .MEDSUPPLY Qty: 1 0RF Rx Instructions: As directed Referrals / Follow Up: Care Physician,No Primary [Primary Care Provider] - Disposition Disposition (needs filled in before D/C Order can be placed): Home, Self Care
[2022-05-30] MEDS: Oxytocin 30 units/NS 500 ml 30 UNITS/500 ML IV.SOLN 167 UNITS IV (21:46)
[2022-05-30] MEDS: Ketorolac 30 MG/ML Syringe IV (22:28)
[2022-05-30] MEDS: Acetaminophen 500 MG Tablet 1000 MG PO (22:30)
--- NOTE | 2022-05-30 23:28 | NURSING ---
epidural catheter removed at this time tip intact, pt tolerated well
--- NOTE | 2022-05-30 23:55 | NURSING ---
report given to Dameon Armenta RN who is assuming care of pt at this time
[2022-05-31] VITALS (11 sets, daily range): BP systolic 92–110; BP diastolic 60–76; PULSE 73–96; RESP 14–20; TEMP 36.1–37.1; O2SAT 95–100
[2022-05-31] MEDS: 0.9% Saline Lock 10 ML Syringe IV (04:43)
[2022-05-31] MEDS: Acetaminophen 500 MG Tablet 1000 MG PO ×4 (04:43→23:55)
[2022-05-31] MEDS: Ketorolac 30 MG/ML Syringe IV ×2 (04:43→10:43)
[2022-05-31] MEDS: Cefazolin 1 GM/50 ML BAG IV ×2 (04:43→12:40)
[2022-05-31] MEDS: Lactated Ringers 1,000 ML 100 ML IV (06:01)
[2022-05-31 06:37] LABS: Hematocrit 28.6 % (37-47); Hemoglobin 9.4 g/dL (12.0-15.0); Mean Corp Hgb Conc 32.9 g/dL (32-36); Mean Corpuscular Hgb 28.3 pg (27.0-32.0); Mean Corpuscular Volume 86.1 fL (81-99); Mean Platelet Vol. 12.5 fl (6.2-12.0); Platelet Count 175 K/mm3 (150-450); RBC Distribution Width CV 14.3 % (11.6-14.6); RBC Distribution Width SD 44.4 fl (35.1-43.9); Red Blood Count 3.32 M/mm3 (4.2-5.4); White Blood Count 19.8 K/mm3 (4.4-11.0)
--- NOTE | 2022-05-31 07:33 | PCM.PN.OB ---
Subjective Subjective Patient doing well without complaints. Tolerating PO. Ambulating and voiding without difficulty. pumping. Denies chest pain, shortness of breath, calf pain/swelling, fevers, chills, lightheadedness. Objective Data Objective Data Vital Signs: Vital Signs Temp Pulse Resp BP Pulse Ox O2 Del Method 97.3 F L 74 18 109/63 100 Room Air 05/31/22 06:30 05/31/22 06:30 05/31/22 06:30 05/31/22 06:30 05/31/22 06:30 05/31/22 06:30 Oxygen Delivery Method Room Air Weight: 159 lb 9.835 oz Body Mass Index (BMI) 29.2 Intake & Output: Intake and Output for Last 24 Hours 05/29/22 05/30/22 05/31/22 23:59 23:59 23:59 Intake Total 500 / 500 6395.21 / 6395.21 548.22 / 548.22 Output Total 3500 / 3500 Balance 500 / 500 2895.21 / 2895.21 548.22 / 548.22 Lab / Micro Data Result Diagrams: 05/31/22 06:25 Labs: Laboratory Results - last 24 hr 05/31/22 06:25: WBC 19.8 H, RBC 3.32 L, Hgb 9.4 L, Hct 28.6 L, MCV 86.1, MCH 28.3, MCHC 32.9, RDW Std Deviation 44.4 H, RDW Coeff of Sebastian 14.3, Plt Count 175, MPV 12.5 H Micro: Microbiology 05/29/22 22:45 Nasal Secretion SARS-CoV-2 Antigen (Rapid) - Final ROS Constitutional Constitutional: Reports systems reviewed and no addt'l complaints, except as documented Cardiovascular Cardiovascular: Reports systems reviewed and no addt'l complaints, except as documented Respiratory/Chest Respiratory/Chest: Reports systems reviewed and no addt'l complaints, except as documented Gastrointestinal Gastrointestinal: Reports systems reviewed and no addt'l complaints, except as documented Physical Exam Const alert, oriented x3 and no apparent distress HEENT Head and Scalp: atraumatic Resp normal respiratory effort GI soft to palpation and non-tender Inspection: incision intact, healing well and drainage (none) Bimanual Exam - Vag & Uterus: uterus non-tender Uterus Palpation: uterus fundus firm (below Umbilicus) Assessment & Plan (1) Maternal fever during labor: COMMENT: amp gent(24 hour dose) given during labor, ancef and azithro at time of cs, ancef 24 hrs (2) delivery delivered: COMMENT: IAL failed vacuum LTCS SM 40 girl Shaye recommend RLTCS next (3) Failed vacuum extraction delivery: PLAN: Plan s/p LTCS PPD # 1 1. routine post care 2.pumping 3. rh positive 4. rubella immune
[2022-05-31] MEDS: Senna/Docusate Sodium 1 Tablet PO (10:41)
[2022-05-31] MEDS: Enoxaparin 40 MG/0.4 ML Syringe SC (10:42)
[2022-05-31] MEDS: Naproxen 500 MG Tablet PO ×2 (16:53→23:56)
--- NOTE | 2022-05-31 20:07 | NURSING ---
pt pumping when RN entered room. pt aware of importance of pumping every 2-3 hours and labeling pumped colostrum.
--- NOTE | 2022-05-31 20:30 | NURSING ---
2030- RN IBCLC rounding with family to see how things have been going. MOB reports things have been going good but she's concerned that the past two times she's pumped she hasn't gotten as much colostrum as other times. Education given on varying amounts of colostrum during pumping sessions. Education also given on breast massage before pumping and hand expression to help with supply. MOB verbalizes understanding. More oral syringes provided from [facility] per mother request.
[2022-06-01 02:13] VITALS: BP 111/70; PULSE 78; RESP 16; TEMP 36.4
[2022-06-01] MEDS: Acetaminophen 500 MG Tablet 1000 MG PO ×2 (05:05→09:46)
--- NOTE | 2022-06-01 08:08 | PCM.PN.OB ---
Subjective Subjective Patient doing well without complaints. Tolerating PO. Ambulating and voiding without difficulty. Feeding well. Denies chest pain, shortness of breath, calf pain/swelling, fevers, chills, lightheadedness. Baby doing well in [place], hematoma resolving. Objective Data Objective Data Vital Signs: Vital Signs Temp Pulse Resp BP Pulse Ox O2 Del Method 97.5 F L 78 16 111/70 98 Room Air 06/01/22 02:13 06/01/22 02:13 06/01/22 02:13 06/01/22 02:13 05/31/22 20:08 06/01/22 02:13 Oxygen Delivery Method Room Air Weight: 159 lb 9.835 oz Body Mass Index (BMI) 29.2 Intake & Output: Intake and Output for Last 24 Hours 05/30/22 05/31/22 06/01/22 23:59 23:59 23:59 Intake Total 6395.21 / 6395.21 1488.22 / 1488.22 Output Total 3500 / 3500 400 / 400 Balance 2895.21 / 2895.21 1088.22 / 1088.22 Lab / Micro Data Result Diagrams: 05/31/22 06:25 Micro: Microbiology 05/29/22 22:45 Nasal Secretion SARS-CoV-2 Antigen (Rapid) - Final Physical Exam Const alert and oriented x3 HEENT normocephalic Eyes PERRL Neck full ROM Resp normal respiratory effort GI soft to palpation GI Narrative: FF below U. Dressing dry and intact Palpation: tender other (appropriately) Assessment & Plan (1) delivery delivered: COMMENT: IAL failed vacuum LTCS SM 40 girl Shaye recommend RLTCS next PLAN: Plan s/p LTCS PPD # 2 1. routine post care 2. breast feeding- support given 3. rh positive 4. rubella immune 5. home today
[2022-06-01 08:30] VITALS: BP 115/75; PULSE 84; RESP 18; TEMP 36.3; O2SAT 96
[2022-06-01] MEDS: Senna/Docusate Sodium 1 Tablet PO (09:47)
[2022-06-01] MEDS: Enoxaparin 40 MG/0.4 ML Syringe SC (09:47)
--- NOTE | 2022-06-06 12:15 | PCM.DC.SUM ---
Providers Date of Admission: 05/29/22 Primary Care Physician: Jennifer Primary Care Phys Reason For Visit: PRIMARY C SECTION Diagnosis Discharge Diagnosis (1) delivery delivered: Status: Inactive Code(s): O82 - Encounter for delivery without indication Plan s/p LTCS PPD # 2 1. routine post care 2. breast feeding- support given 3. rh positive 4. rubella immune 5. home today Medications at Discharge Home Medications prenat.vits,irma,zim-mkta-mtzyl 1 tab PO DAILY 10/07/21 breast pump #1 ea 03/16/22 naproxen 500 mg tablet 500 mg PO BID PRN PRN Pain #30 tabs 05/30/22 oxycodone-acetaminophen 5 mg-325 mg tablet (Percocet) 1 tab PO Q6H PRN pain 7 days #20 tabs 05/30/22 Hospital Course Operations section Summary of Care Provided Hospital Course: Patient underwent section with routine recovery, return of normal bowel and bladder function. Ambulating, voiding and tolerating PO. Stable for discharge home POD #3. Weight / BMI Weight Weight: 159 lb 9.835 oz Body Mass Index (BMI) 29.2 ABG / Lab / Microbiology Data Result Diagrams: 05/31/22 06:25 Microbiology: Microbiology 05/29/22 22:45 Nasal Secretion SARS-CoV-2 Antigen (Rapid) - Final Meaningful Use Info Meaningful Use Diagnoses (Choose all that apply): None applicable Discharge Plan Admission Admit Date/Time: 05/29/22 22:30 Attending Provider: Monalisa Langley Primary Care Provider: Care Physician,Jennifer Primary Instructions Patient Instructions: After a Discharge Orders/Prescriptions Prescriptions: New oxycodone-acetaminophen [Percocet] 5-325 mg tablet 1 tab PO Q6H PRN (Reason: pain) 7 Days Qty: 20 0RF naproxen [naproxen] 500 mg tablet 500 mg PO BID PRN PRN (Reason: Pain) Qty: 30 1RF Continued prenat.vits,irma,kxo-uqku-uehey Tablet 1 tab PO DAILY (DME) breast pump Device See Rx Instructions .ROUTE .MEDSUPPLY Qty: 1 0RF Rx Instructions: As directed Referrals / Follow Up: Care Physician,No Primary [Primary Care Provider] - Disposition Disposition (needs filled in before D/C Order can be placed): Home, Self Care
== END 2022-06-01 11:40 | disposition home or self-care (01) | DRG 787 ==
LOC: WPOUT 22:44 → WP 22:44
PROVIDERS: Admitting Provider Obstetrics & Gynecology; Visit Provider Obstetrics & Gynecology
DX: O99.02 Anemia complicating childbirth (principal); O75.2 Pyrexia during labor, not elsewhere classified; O65.4 Obstructed labor due to fetopelvic disproportion, unspecified; O66.5 Attempted application of vacuum extractor and forceps; Z37.0 Single live birth; Z3A.39 39 weeks gestation of pregnancy
CPT/HCPCS: 59025; 59050; 85025; 85027; 86850; 86900; 86901; 87426; 99218; J7120; A4216; G0378; J2405

== ENCOUNTER → 2024-07-19 | Outpatient (CLI) | payer OTHER, SELFPAY ==
[2024-07-28 18:07] LABS: HPV APTIMA, High Risk Negative (Negative)
== END | disposition home or self-care (01) ==
LOC: LABSPEC 10:11
PROVIDERS: Referring Provider Obstetrics & Gynecology; Visit Provider Obstetrics & Gynecology
DX: Z12.4 Encounter for screening for malignant neoplasm of cervix (principal)
CPT/HCPCS: 87624; 88175; G0145